=== PATIENT | male | born 1960 | race Two or more races ===

== ENCOUNTER 2018-08-16 06:11 | Inpatient (IN) | payer MEDICAID, OTHER ==
[~2018-08-16] VITALS: Ht 190.5 cm; Wt 122.5 kg
--- NOTE | 2018-08-16 06:23 | NUR ---
DAUGHTER CONTACT INFORMATION: BRANNON
--- NOTE | 2018-08-16 06:25 | NUR ---
Pt ADDIE FROM HOME. ROOMMATE CALLED 911 DUE TO Pt CALLING OUT FOR HELP, WHEN Pt CAME TO HIS ROOM FOUND Pt LETHARGIC WITH AMS. UPON ARRIVAL Pt WAS LETHARGIC GOING IN AND OUT OF SLEEP. Pt IS A/OX3, VERBAL, WITH SOME SLURRED SPEECH NOTED. IV ACCESS NOTED HARVESTER OPERATOR ON RAC #20G. NS 250ML RECEIVED EN ROUTE. PER Pt REPORT, STATED THAT HE DID SMOKE A MARIJUANNA JOINT BEFORE GOING TO BED. NO S/S OF ACUTE DISTRESS OR SOB NOTED. Pt DENIES HAVING ANY CP. -N/V/D. AFEBRILE. Pt ALREADY SEEN BY MD AT BEDSIDE. WILL CONTINUE TO MONITOR Pt's CONDITION.
[2018-08-16 06:55] LABS: BASOPHILS # (AUTO) 0.1 /CMM (0.0-0.2); BASOPHILS % (AUTO) 0.8 % (0.0-2.0); EOSINOPHILS % (AUTO) 2.3 % (0.0-6.0); HEMATOCRIT 41 % (39-51); HEMOGLOBIN 13.8 g/dL (13.5-17.5); LYMPHOCYTES # (AUTO) 1.8 /CMM (0.8-4.8); MEAN CORPUSCULAR HGB CONC 34 g/dl (31.0-36.0); MEAN CORPUSCULAR VOLUME 91 fL (80-96); MONOCYTES # (AUTO) 0.5 /CMM (0.1-1.30); NEUTROPHILS # (AUTO) 4.5 /CMM (1.8-8.9); NEUTROPHILS % (AUTO) 63.9 % (43.0-81.0); PLATELET COUNT (AUTO) 181 /CMM (150-450); RED BLOOD CELL COUNT(AUTO) 4.46 MIL/uL (4.5-6.0); WHITE BLOOD COUNT (AUTO) 7.1 K/uL (4.3-11.0)
[2018-08-16] MEDS ORDERED: IV NS 0.9% 1,000 ML BAG IV ONE (07:00)
[2018-08-16 07:14] LABS: ALANINE AMINOTRANSFERASE 24 U/L (12-78); ALBUMIN 3.3 g/dL (3.4-5.0); ALKALINE PHOSPHATASE 102 U/L (46-116); ASPARTATE AMINOTRANSFERASE 10 U/L (15-37); BILIRUBIN,DIRECT 0.1 mg/dL (0.0-0.2); BILIRUBIN,TOTAL 0.4 mg/dL (0.2-1.0); CALCIUM, SERUM 8.5 mg/dL (8.5-10.1); CARBON DIOXIDE 26 mmol/L (21-32); CHLORIDE 99 mmol/L (98-107); POTASSIUM 5.1 mmol/L (3.5-5.1); SODIUM SERUM 133 mmol/L (136-145); TOTAL PROTEIN, SERUM 6.6 g/dL (6.4-8.2); UREA NITROGEN, BLOOD 22 mg/dL (7-18)
[2018-08-16 07:16] LABS: GLUCOSE 359 mg/dL (74-106)
--- NOTE | 2018-08-16 07:20 | NUR ---
Pt TAKEN TO CT
--- NOTE | 2018-08-16 07:30 | NUR ---
Pt ARRIVED BACK TO ROOM FROM CT
--- NOTE | 2018-08-16 07:35 | NUR ---
ENDORSED TO CARLOS CAMPUZANO FOR Pt's JASPAL.
[2018-08-16 08:04] LABS: APPEARANCE,URINE Clear (CLEAR); BILIRUBIN,URINE Negative (NEGATIVE); BLOOD, URINE Negative Ery/uL (NEGATIVE); COLOR,URINE Yellow (YELLOW); KETONES,URINE Trace (NEGATIVE); LEUKOCYTE ESTERASE ,URINE Negative (NEGATIVE); NITRITE, URINE Negative (NEGATIVE); PROTEIN,URINE Negative (NEGATIVE); UGLUCOSE 500 MG/DL mg/dL (NEGATIVE); UROBILINOGEN,URINE 0.2 EU/dL (0.2)
[2018-08-16 08:06] LABS: BACTERIA,URINE Rare /HPF (None Seen); RBC,URINE 0-2 /HPF (0-2); SQUAMOUS EPITHELIAL CELL,UR Rare /HPF (None Seen); WBC,URINE 0-2 /HPF (0-3)
[2018-08-16] MEDS ORDERED: IOHEXOL-350 100 ML VIAL IV ONE (08:07)
[2018-08-16] MEDS ORDERED: IV NS 0.9% 250 ML IV ONE (08:07)
[2018-08-16] MEDS ORDERED: CT SWABBABLE VALVE TRANS SET 1 EA INFUS.SET MC ONE (08:07)
[2018-08-16 08:21] LABS: ABG BASE EXCESS -2.2 mmol/L; ABG OXYGEN SATURATION 93.5 % (92.0-98.5); ABG PCO2 39.8 mmHg (35.0-45.0); ABG PH 7.375 (7.350-7.450); ABG PO2 73.4 mmHg (75.0-100.0); AaDO2 28.7 mmHg; COHb 1.4 % (0.5-1.5); MetHb 0.2 % (0.0-1.5); SITE, ABG Right Radial; VENT MODE, BG ROOM AIR
[2018-08-16] MEDS ORDERED: CLOP75TA15 PO (08:35)
[2018-08-16] MEDS ORDERED: METO-356 PO (08:35)
[2018-08-16] MEDS ORDERED: LISI10TA5 PO (08:35)
[2018-08-16] MEDS ORDERED: PRAV80TA21 PO (08:35)
[2018-08-16] MEDS ORDERED: METF-442 PO (08:35)
[2018-08-16] MEDS ORDERED: ASPI-992 PO (08:35)
[2018-08-16] MEDS ORDERED: Z GUARD REMEDY 2 OZ OINT TP PRN (09:30)
[2018-08-16] MEDS ORDERED: ONDANSETRON HCL/PF 4 MG/2 ML VIAL IVP PRN (09:30)
[2018-08-16] MEDS ORDERED: DEXTROSE 50%-WATER 50 ML DISP.SYRIN IV PRN ×2 (09:30→21:00)
[2018-08-16] MEDS ORDERED: MAGNESIUM HYDROXIDE 30 ML UDC PO PRN (09:30)
[2018-08-16] MEDS ORDERED: ENOXAPARIN SODIUM 40 MG/0.4 ML DISP.SYRIN SQ SCH (09:30)
[2018-08-16] MEDS ORDERED: MAG HYDROX/AL HYDROX/SIMETH 30 ML UDC PO PRN (09:30)
--- NOTE | 2018-08-16 10:04 | NUR ---
REPORT GIVEN TO FREDY LOWERY FOR JASPAL; PT WILL BE TRANSPORTED TO [facility] VIA ACLS PROTOCOL
[2018-08-16 10:33] LABS: SERUM AMMONIA 3 umol/L (11-32)
[2018-08-16 10:43] LABS: ACETAMINOPHEN 0 ug/ml (10-30); ALCOHOL, BLOOD < 3 mg/dL (0-0); SALICYLATE 1.8 mg/dL (2.8-20.0)
--- NOTE | 2018-08-16 10:55 | NUR ---
TD RN NOTES ADMITTED PATIENT FROM ER, LETHARGIC, AROUSABLE TO NAME AND TOUCH ACCOMPANIED BY DAUGHTER. VITAL SIGNS TAKEN. SINUS RHYTHM ON THE MONITOR. MADE COMFORTABLE, WILL CONT TO MONITOR.
[2018-08-16 12:00] VITALS: BP 129/83
--- NOTE | 2018-08-16 12:05 | NUR ---
TD RN NOTES REPORT GIVEN TO SUSAN FOR JASPAL.
--- NOTE | 2018-08-16 12:10 | NUR ---
DESIGN MAKER NOTES RESUMED CARE OF PT.
[2018-08-16] MEDS: BLOOD SUGAR DIAGNOSTIC 1 EACH STRIP IN SCH ×2 (12:37→17:33)
[2018-08-16] MEDS: IV NS 0.9% 1,000 ML IV PRN (12:46)
[2018-08-16] MEDS: INSULIN REGULAR, HUMAN 100 UNIT/ML 3 ML VIAL SQ PRN ×2 (13:05→17:33)
[2018-08-16] MEDS: ACETAMINOPHEN 325 MG TABLET PO PRN (14:16)
[2018-08-16 16:00] VITALS: BP 96/55
--- NOTE | 2018-08-16 18:54 | NUR ---
AIRCRAFT RESTORER END OF SHIFT NOTES PT RESTING IN BED, A/OX3. FAMILY AT BEDSIDE. ON IV FLUIDS VIA PATENT RAC IV SITE. NO S/SX OF DISTRESS ON ROOM AIR. BED IN LOCKED/LOWEST POSITION. CALL LIGHT IN REACH. WILL ENDORSE TO NOC NURSE FOR JASPAL
--- NOTE | 2018-08-16 19:00 | NUR ---
GREEN CHAINER NOTE PATIENT IS RESTING IN BED AOX2-3, LETHARGIC, ABLE TO ANSWER QUESTIONS APPROPRIATELY, SPEECH IS CLEAR, ON ROOM AIR, NO S/SX OF CARDIAC OR RESPIRATORY DISTRESS, ON TELE SR, RAC #20G WITH NS AT 75 ML/HR, PATENT, FLUSHING WELL, SKIN KEPT CLEAN AND DRY, WILL CONTINUE TO MONITOR FOR ANY CHANGES IN CONDITION.
[2018-08-16 20:00] VITALS: BP 133/88
[2018-08-16] MEDS ORDERED: *INSULIN REGULAR(HUMULIN R)HUM 100 UNIT/ML VIAL SQ PRN (21:00)
[2018-08-16] MEDS ORDERED: INSULIN REGULAR, HUMAN 100 UNIT/ML 3 ML VIAL SQ PRN (21:00)
[2018-08-16] MEDS: BLOOD SUGAR DIAGNOSTIC 1 EACH STRIP VI SCH (21:10)
[2018-08-17] VITALS: BP 136/94
[2018-08-17] MEDS: IV NS 0.9% 1,000 ML IV PRN (01:25)
[2018-08-17 04:00] VITALS: BP_SYST 130; BP_SYST 197; BP_DIAS 68; BP_DIAS 82
[2018-08-17 06:51] LABS: THYROID STIMULATING HORMONE 2.146 uIU/mL (0.358-3.74)
[2018-08-17 06:52] LABS: CALCIUM, SERUM 8.7 mg/dL (8.5-10.1); CREATININE 0.9 mg/dL (0.6-1.3); MAGNESIUM 1.7 mg/dL (1.8-2.4); PHOSPHORUS 3.1 mg/dL (2.5-4.9); POTASSIUM 4.2 mmol/L (3.5-5.1)
[2018-08-17 06:53] LABS: BASOPHILS # (AUTO) 0.2 /CMM (0.0-0.2); BASOPHILS % (AUTO) 3.6 % (0.0-2.0); HEMATOCRIT 41 % (39-51); LYMPHOCYTES # (AUTO) 0.8 /CMM (0.8-4.8); LYMPHOCYTES % (AUTO) 11.3 % (20.0-44.0); MEAN CORPUSCULAR HGB CONC 34 g/dl (31.0-36.0); MEAN CORPUSCULAR VOLUME 92 fL (80-96); MONOCYTES # (AUTO) 0.4 /CMM (0.1-1.30); MONOCYTES % (AUTO) 5.3 % (2.0-12.0); NEUTROPHILS # (AUTO) 5.1 /CMM (1.8-8.9); NEUTROPHILS % (AUTO) 74.8 % (43.0-81.0); PLATELET COUNT (AUTO) 169 /CMM (150-450); RED BLOOD CELL COUNT(AUTO) 4.49 MIL/uL (4.5-6.0); WHITE BLOOD COUNT (AUTO) 6.9 K/uL (4.3-11.0)
[2018-08-17] MEDS ORDERED: PANTOPRAZOLE 40 MG TABLET.DR PO SCH (07:30)
--- NOTE | 2018-08-17 07:35 | NUR ---
RN NOTES RECEIVED PATIENT ASLEEP, EASILY AROUSABLE DURING CARE, ORIENTED X3. RESPIRATIONS EVEN AND UNLABORED, DENIES ANY PAIN OR DISCOMFORT AT THIS TIME. RIGHT AC IV ACCESS PATENT AND INTACT NO REDNESS OR INFILTRATION NOTED. KEPT CLEAN DRY AND COMFORTABLE, CALL LIGHT WITHIN EASY REACH, WILL CONTINUE TO MONITOR
[2018-08-17 08:00] VITALS: BP 132/72
[2018-08-17] MEDS: BLOOD SUGAR DIAGNOSTIC 1 EACH STRIP VI SCH (08:12)
[2018-08-17] MEDS ORDERED: ASPIRIN 325 MG TABLET PO SCH (09:00)
[2018-08-17] MEDS ORDERED: METOPROLOL SUCCINATE 25 MG TAB.SR.24H PO SCH (09:00)
[2018-08-17] MEDS ORDERED: CLOPIDOGREL BISULFATE 75 MG TABLET PO SCH (09:00)
[2018-08-17] MEDS ORDERED: LISINOPRIL (10MG) 10 MG TABLET PO SCH (09:00)
[2018-08-17] MEDS: ACETAMINOPHEN 325 MG TABLET PO PRN (09:01)
[2018-08-17] MEDS ORDERED: INSULIN REGULAR, HUMAN 100 UNIT/ML 3 ML VIAL SQ PRN (12:00)
[2018-08-17] MEDS ORDERED: *INSULIN REGULAR(HUMULIN R)HUM 100 UNIT/ML VIAL SQ PRN (12:00)
[2018-08-17] MEDS ORDERED: BLOOD SUGAR DIAGNOSTIC 1 EACH STRIP IN SCH (12:00)
[2018-08-17] MEDS ORDERED: DEXTROSE 50%-WATER 50 ML DISP.SYRIN IV PRN (12:00)
[2018-08-17] MEDS: Magnesium 1GM/D5W 100ML PREMIX 100 ML IV SCH ×2 (12:37→13:27)
[2018-08-17] MEDS ORDERED: KETOROLAC TROMETHAMINE INJ 30 MG/ML VIAL IM PRN (14:30)
[2018-08-17] MEDS ORDERED: GLIP5TAB13 PO (15:00)
[2018-08-17 16:03] VITALS: BP 123/80
--- NOTE | 2018-08-17 16:22 | NUR ---
RN NOTES PATIENT AWAKE ALERT AND VERBALLY RESPONSIVE, SEEN BY PHYSICAL THERAPY ABLE TO AMBULATE BY HIMSELF,ORIENTED X3. RESPIRATIONS EVEN AND UNLABORED, DENIES ANY PAIN OR DISCOMFORT AT THIS TIME. RIGHT AC IV ACCESS REMOVED WITH NO ASE NOTED, ID BAND REMOVED. SKIN CLEAN DRY AND INTACT NO PICTURES NEEDED. PT WITH DISCHARGE ORDERS ALL DISCHARGE INSTRUCTIONS REVIEWED WITH PATIENT, ALL DISCHARGE MEDICATIONS AND PRESCRIPTIONS REVIEWED WITH NOTED VERBAL UNDERSTANDING. PATIENT DISCHARGED IN STABLE CONDITION, ASSISTED TO LOBBY BY RN, ALL BELONGINGS ACCOUNTED FOR
[2018-08-17] MEDS ORDERED: glipiZIDE 5 MG TABLET PO SCH (16:30)
[2018-08-17] MEDS ORDERED: METFORMIN 500 MG TABLET PO SCH (17:00)
[2018-08-17] MEDS ORDERED: ATORVASTATIN 10 MG TABLET PO SCH (22:00)
== END 2018-08-17 16:22 | disposition home or self-care (01) | DRG 812 ==
LOC: ER 06:13 → TELE1 10:13 → MEDSG1 08-17 10:20
PROVIDERS: ADMIT Registered Nurse; ATTEND Student in an Organized Health Care Education/Training Program
DX: T42.4X1A Poisoning by benzodiazepines, accidental (unintentional), initial encounter (principal); G92 Toxic encephalopathy; E11.65 Type 2 diabetes mellitus with hyperglycemia; E66.01 Morbid (severe) obesity due to excess calories; F12.929 Cannabis use, unspecified with intoxication, unspecified; I10 Essential (primary) hypertension; I25.10 Atherosclerotic heart disease of native coronary artery without angina pectoris; Y92.009 Unspecified place in unspecified non-institutional (private) residence as the place of occurrence of the external cause; Z88.0 Allergy status to penicillin; Z68.33 Body mass index [BMI] 33.0-33.9, adult; Z79.84 Long term (current) use of oral hypoglycemic drugs; Z79.82 Long term (current) use of aspirin; Z79.02 Long term (current) use of antithrombotics/antiplatelets; Z98.61 Coronary angioplasty status; Z79.899 Other long term (current) drug therapy; E78.5 Hyperlipidemia, unspecified; T40.7X1A Poisoning by cannabis (derivatives), accidental (unintentional), initial encounter
CPT/HCPCS: 36415; 36600; 70450-TC; 70496-TC; 70498-TC; 71045-TC; 80048-TC; 80061-TC; 80076-TC; 80305; 81000-TC; 82140-TC; 82803-TC; 82962-TC; 83735-TC; 84100-TC; 84443-TC; 84484-TC; 85025-TC; 85730-TC; 87081-TC; 93307-TC; 95819-TC; G0378; G0480; J1815; J3475; J7030; J7050; Q9967